=== PATIENT | male | born 1955 | race Two or more races ===

== ENCOUNTER 2017-05-28 21:36 | Observation (INO) | payer SELFPAY ==
[2017-05-28] MEDS ORDERED: ONDANSETRON 4 MG/2 ML VIAL IVP ONE (21:55)
[2017-05-28] MEDS ORDERED: NS 1,000 ML IV ONE ×3 (21:55→23:06)
--- NOTE | 2017-05-28 21:55 | EDPHY ---
H & P Stated Complaint: 3 days headache and now abd distention HPI/ROS: HPI CHIEF COMPLAINT: 3 days of headache, nausea, abdominal distention, generalized weakness HISTORY OF PRESENT ILLNESS: This patient is 61-year-old male, he has significant past medical history for hypertension, hyperlipidemia and diabetes, obesity, he presents emergency room with 3 days of global frontal throbbing pulsating headache. States this started suddenly on Sunday. It has been persistent since Sunday. Rather severe 05/03. He denies numbness or tingling anywhere. Denies focal weakness. Denies chest pain or shortness of breath. He additionally reports that his abdomen feels distended to him. He does not have any abdominal pain. Denies back pain or neck pain. Denies neck stiffness. He has never had a headache like this. Additionally tells me when he stands he gets weak globally, no dizziness. No double vision. No focal weakness. No sensation difference. Additionally the family reports that he had a fever on Sunday and Sunday 101 T -max. Of note patient is Algerian-speaking only. Son at bedside speaks fluent Faroese and Algerian. He is comfortable translating. Past Medical History: Hypertension, hyperlipidemia, diabetes Past Surgical History: No recent surgery Social History: Denies daily use of drugs alcohol tobacco products. Lives locally. Son at bedside Family History: ROS REVIEW OF SYSTEMS: A comprehensive 10 point review of systems is otherwise negative aside from elements mentioned in the history of present illness. Exam Constitutional appears well nontoxic triage nursing summary reviewed, vital signs reviewed, awake/alert. Vital signs have been reviewed, tachypnea, tachycardia. Eyes normal conjunctivae and sclera, EOMI, PERRLA. HENT normal inspection, atraumatic, moist mucus membranes, no epistaxis, neck supple/ no meningismus, no raccoon eyes. Respiratory clear to auscultation bilaterally, normal breath sounds, no respiratory distress, no wheezing. Cardiovascular rate normal, regular rhythm, no murmur, no edema, distal pulses normal. Gastrointestinal soft, non-tender, no rebound, no guarding, normal bowel sounds, no distension, no pulsatile mass. Genitourinary no CVA tenderness. Musculoskeletal no midline vertebral tenderness, full range of motion, no calf swelling, no tenderness of extremities, no meningismus, good pulses, neurovascularly intact. Skin pink, warm, & dry, no rash, skin atraumatic. Neurologic awake, alert and oriented x 3, AAOx3, moves all 4 extremities equally, motor intact, sensory intact, CN II-XII intact, normal cerebellar, normal vision, normal speech. Psychiatric normal mood/affect. Heme/Lymph/Immune no lymphadenopathy. Differential Diagnosis: Includes but is not limited to in a particular order, migraine headache, tension headache, cluster headache, intracranial bleed, intracranial tumor, infection, dehydration, electrolyte disturbance Medical Decision Making: Plan for this patient IV establishment IV fluid bolus , migraine cocktail, CT head without contrast CT angiogram head and neck given vascular risk factors, which include hypertension hyperlipidemia and diabetes, check EKG, troponin, electrolytes, abdominal labs. Urinalysis. Re-evaluate. Re-evaluation: EKG interpretation by me on record in [facility] system. Impression time of EKG 2235: Sinus tachycardia rate of 105. Otherwise I do not appreciate acute ischemic changes. Slightly Q-waves in lead 3 AVF. ED x-ray chest two view: This shows bilateral pulmonary infiltrates. Right lower lobe infiltrate. Left lower lobe infiltrate left middle lobe infiltrate. The scans are pending at this time. 2305: The patient desatted to 82% here in the emergency room he is on 3 L nasal cannula time. This patient is meeting sepsis criteria with tachycardia, tachypnea, hypoxia any pneumonia on his chest x-ray. So we treated as community -acquired pneumonia. IV Rocephin IV azithromycin has been order. Fluid bolus has been ordered 2 L normal saline. Pain not hypotensive. Blood cultures be pulled. He will be admitted to the hospital for pneumonia. 2345: Patient has pneumonia obviously on chest x-ray. He is hypoxic he was tachycardic and had fever over this weekend. Most likely cause of all this is atypical pneumonia. He has been given IV Rocephin and IV azithromycin. He is angiogram head and neck and CT scan of his head for headache her unremarkable. He is pending a CT angiogram of the chest. 2345: Spoke with Dr. Covarrubias. He agrees to admit this patient for pneumonia hypoxia sepsis. Patient is being resuscitated 3 L of normal saline. IV Rocephin IV azithromycin. Blood cultures. Elevated lactic initially. 2nd lactic pending. Hemodynamically stable. Heart rate is improved. Current vitals are heart rate 88, blood pressure 97/72. Pulse ox 97% on 3 L. 0001: Spoke with Dr. Covarrubias, he specifically requesting that we perform a CT angiogram of the chest. Patient be vigorously hydrated with IV fluids he is getting his 3rd L fluid at this time. This will hopefully flush out the contrast from is angiogram head and neck. Will use a reduce contrast load of the CT angiogram chest. Spoke with Dr. Jose Sierra who also spoke with the hospitalist about the CT angiogram. CT angiogram of the chest called to me by Dr. Sierra. This shows dense infiltrate left lung. Versus mass. Interstitial lung disease. No PE. Plan is still to be admitted for pneumonia treatment. Source: Patient - Personal History Current Tetanus/Diphtheria Vaccine: Yes Current Tetanus Diphtheria and Acellular Pertussis (TDAP): Yes - Medical/Surgical History Hx Asthma: No Hx Chronic Respiratory Disease: No Hx Diabetes: Yes Hx Cardiac Disease: Yes Hx Renal Disease: No Hx Cirrhosis: No Hx Alcoholism: No Hx HIV/AIDS: No Hx Splenectomy or Spleen Trauma: No - Social History Smoking Status: Former smoker Constitutional: Initial Vital Signs Temperature (C) 37.2 C 05/28/17 21:47 Heart Rate 122 H 05/28/17 21:47 Respiratory Rate 24 H 05/28/17 21:47 Blood Pressure 140/97 H 05/28/17 21:47 O2 Sat (%) 89 L 05/28/17 21:47 O2 Delivery Mode Nasal Cannula O2 (L/minute) 4 Allergies/Adverse Reactions: No Known Allergies Allergy (Unverified 05/28/17 21:45) Home Medications: Medication Instructions Recorded Diclofenac Sodium [Voltaren 50 MG 100 mg PO BID 05/28/17 (*)] Insulin NPH Human [humULIN N 100 30 units SC DAILY 05/28/17 UNITS/ML (*)] Isosorbide Dinitrate [Isosorbide 10 mg PO BIDNITRATE 05/28/17 Dinitrate 10 mg (*)] Losartan Potassium [Cozaar 50 mg 50 mg PO BID 05/28/17 (*)] Acetaminophen [Tylenol 325mg (*)] 650 mg PO Q4HRS PRN #0 tab 05/29/17 Insulin NPH Human [humULIN N 100 17 units SC HS 05/29/17 UNITS/ML (*)] levOFLOXACIN [Levofloxacin] 750 mg PO DAILY #5 tablet 05/29/17 Medical Decision Making - Data Points Laboratory Results: Laboratory Results 05/28/17 22:05 05/28/17 22:05 Microbiology Results: MICROBIOLOGY 05/28/17 02:10 Nasal, Sinus - Eswab Respiratory Panel (PCR) - Final No Organism Detected Medications Given: Discontinued Medications Dexamethasone (Decadron Injection) 10 mg IVP EDNOW ONE Stop: 05/28/17 22:04 Last Admin: 05/28/17 22:33 Dose: Not Given Diclofenac Sodium (Voltaren) 100 mg PO BID [facility] Stop: 11/25/17 10:59 Last Admin: 05/29/17 13:51 Dose: Not Given Diphenhydramine HCl (Benadryl Injection) 25 mg IVP EDNOW ONE Stop: 05/28/17 22:04 Last Admin: 05/28/17 22:18 Dose: 25 mg Enoxaparin Sodium (Lovenox) 40 mg SC DAILY [facility] Stop: 11/25/17 08:59 Last Admin: 05/29/17 09:42 Dose: 40 mg Hydromorphone HCl (Dilaudid) 0.5 mg IVP EDNOW ONE Stop: 05/28/17 22:04 Last Admin: 05/28/17 22:19 Dose: 0.5 mg Sodium Chloride (Ns) 1,000 mls @ 0 mls/hr IV EDNOW ONE; Wide Open PRN Reason: Protocol Stop: 05/28/17 21:56 Last Admin: 05/28/17 22:17 Dose: 1,000 mls Azithromycin 500 mg/ Dextrose 255 mls @ 255 mls/hr IV EDNOW ONE PRN Reason: Protocol Stop: 05/29/17 00:00 Last Admin: 05/28/17 23:51 Dose: 255 mls Ceftriaxone Sodium/Dextrose (Rocephin 1 Gm (Premix)) 50 mls @ 100 mls/hr IV EDNOW ONE PRN Reason: Protocol Stop: 05/28/17 23:30 Last Admin: 05/28/17 23:23 Dose: 50 mls Sodium Chloride (Ns) 1,000 mls @ 0 mls/hr IV ONCE ONE PRN Reason: Wide Open Stop: 05/28/17 23:05 Last Admin: 05/28/17 23:22 Dose: 1,000 mls Sodium Chloride (Ns) 1,000 mls @ 0 mls/hr IV ONCE ONE PRN Reason: Wide Open Stop: 05/28/17 23:07 Last Admin: 05/28/17 23:22 Dose: 1,000 mls Insulin Glargine (Lantus Syringe) 20 units SC DAILY [facility] Stop: 11/25/17 08:59 Last Admin: 05/29/17 09:44 Dose: 20 units Insulin Human Lispro (Humalog Lispro) 0 unit SC TIDMEAL BECCA PRN Reason: Protocol Stop: 11/25/17 07:59 Last Admin: 05/29/17 13:49 Dose: 4 unit Insulin Human NPH (Humulin N Syringe) 30 units SC DAILY [facility] Stop: 11/25/17 10:59 Last Admin: 05/29/17 13:55 Dose: Not Given Isosorbide Dinitrate (Isosorbide Dinitrate) 10 mg PO BIDNITRATE [facility] Stop: 11/25/17 14:59 Last Admin: 05/29/17 12:29 Dose: 10 mg Metoclopramide HCl (Reglan Injection) 10 mg IVP EDNOW ONE Stop: 05/28/17 22:04 Last Admin: 05/28/17 22:19 Dose: 10 mg Ondansetron HCl (Zofran) 4 mg IVP EDNOW ONE Stop: 05/28/17 21:56 Last Admin: 05/28/17 22:19 Dose: 4 mg Pneumococcal Polyvalent Vaccine (Pneumovax 23) 0.5 ml IM .ONCE ONE Stop: 05/29/17 11:02 Last Admin: 05/29/17 13:55 Dose: Not Given Departure - Departure Disposition: [facility] Inpatient Acute Clinical Impression: Pneumonia Qualifiers: Pneumonia type: due to unspecified organism Laterality: bilateral Lung location : lower lobe of lung Qualified Code(s): J18.9 - Pneumonia, unspecified organism Condition: Fair
[2017-05-28] MEDS ORDERED: HYDROmorphONE/DILAUDID 1 MG/ML SYR IVP ONE (22:03)
[2017-05-28] MEDS ORDERED: DEXAMETHASONE 10 MG/ML VIAL IVP ONE (22:03)
[2017-05-28] MEDS ORDERED: METOCLOPRAMIDE 10 MG/2 ML VIAL IVP ONE (22:03)
[2017-05-28 22:14] LABS: % IMMATURE GRANULYOCYTES 0.3 % (0.0-1.1); ABSOLUTE IMMATURE GRANULOCYTES 0.03 10^3/uL (0.00-0.10); ADD DIFF? NO; ADD MORPH? NO; ADD SCAN? NO; ATYPICAL LYMPHOCYTE FLAG 20 (0-99); FRAGMENT RBC FLAG 0 (0-99); HEMATOCRIT 48.3 % (40.0-51.0); HEMOGLOBIN 16.2 g/dL (13.7-17.5); LEFT SHIFT FLG 0 (0-99); LIPEMIA HEMOLYSIS FLAG 80 (0-99); MEAN CELL HEMOGLOBIN 30.2 pg (27.9-34.1); MEAN CELL HEMOGLOBIN CONCENTR. 33.5 g/dL (32.4-36.7); MEAN CELL VOLUME 89.9 fL (81.5-99.8); MEAN PLATELET VOLUME 10.5 fL (8.7-11.7); PLATELET CLUMPS FLAG 10 (0-99); PLATELET COUNT 205 10^3/uL (150-400); RED BLOOD CELL COUNT 5.37 10^6/uL (4.40-6.38); RED CELL DISTRIBUTION WIDTH 12.4 % (11.5-15.2)
[2017-05-28 22:28] LABS: ALANINE AMINOTRANSFERASE 38 IU/L (21-72); ALBUMIN 3.9 g/dL (3.5-5.0); ALKALINE PHOSPHATASE 85 IU/L (38-126); ANION GAP 14 mEq/L (8-16); ASPARTATE AMINOTRANSFERASE 26 IU/L (17-59); BILIRUBIN,TOTAL 0.8 mg/dL (0.1-1.4); BILIRUBIN-CONJUGATED 0.4 mg/dL (0.0-0.5); BILIRUBIN-UNCONJUGATED 0.4 mg/dL (0.0-1.1); CALCIUM 9.7 mg/dL (8.5-10.4); CARBON DIOXIDE 24 mEq/l (22-31); CHLORIDE 94 mEq/L (97-110); CREATININE 0.8 mg/dL (0.7-1.3); GLOMERULAR FILTRATION RATE > 60; GLUCOSE 261 mg/dL (70-100); INR 1.03 (0.83-1.16); PROTIME(PATIENT) 13.4 SEC (12.0-15.0); SODIUM 132 mEq/L (134-144); TOTAL PROTEIN 7.2 g/dL (6.3-8.2)
[2017-05-28 22:29] LABS: APTT 33.7 SEC (23.0-38.0)
[2017-05-28] MEDS ORDERED: IOPAMIDOL (ISOVUE 370) 100 ML BTL IV ONE ×2 (22:32→23:54)
--- NOTE | 2017-05-28 22:39 | CPEKG ---
Heart Rate: 105 RR Interval: 571 P-R Interval: 160 QRSD Interval: 94 QT Interval: 348 QTC Interval: 461 P [place]: 44 QRS [place]: 67 T Wave [place]: 19 EKG Severity - BORDERLINE ECG - EKG Impression: SINUS TACHYCARDIA EKG Impression: BORDERLINE INFERIOR Q WAVES Electronically Signed By: Kelvin Ashton 29-May-2017 07:45:12
[2017-05-28 22:40] LABS: TROPONIN I < 0.012 ng/mL (0.000-0.034)
[2017-05-28] MEDS ORDERED: AZITHROMYCIN IV 500 MG in D5W 250 ML IV ONE (23:01)
[2017-05-28 23:45] LABS: BASE EXCESS -0.9 mEq/L (-2.5-2.5); BICARBONATE 23 mEq/L (22-26); MEASURED OXYGEN SATURATION 98 % (92-95); PCO2 38 mmHg (34-38); PO2 96 mmHg (65-75); TCO2 24 mEq/L (23-27)
[2017-05-29] MEDS ORDERED: ONDANSETRON 4 MG/2 ML VIAL IVP PRN (01:06)
[2017-05-29] MEDS ORDERED: ONDANSETRON DISINTEGRATING 4 MG TAB PO PRN (01:06)
[2017-05-29] MEDS ORDERED: ACETAMINOPHEN 325 MG TAB PO PRN (01:06)
--- NOTE | 2017-05-29 01:13 | PDGENHP ---
History and Physical - Chief Complaint Headache - History of Present Illness 61 yo M with DM and HTN presents to ED with headache, sore throat, nausea, and abdominal pain. He is visiting his family from [place] and has not felt well for the past 3 days. He has been having a diffuse headache involving both temples that has lasted 3 days. He denies photophobia or phonophobia. Additionally, He has been having nausea, sore throat, and abdominal pain. He denies cough, SOB, dysuria, and diarrhea. Upon arrival in ED he was given fluids, Benadryl, Dilaudid, and Reglan with resolution of his symptoms. However, he was noted to be hypoxic while here. CXR revealed L sided consolidation. History Information - Allergies/Home Medication List Allergies/Adverse Reactions: No Known Allergies Allergy (Unverified 05/28/17 21:45) Home Medications: Diclofenac Sodium 05/28/17 [Last Taken Unknown] ISOSORBIDE DINITRATE 05/28/17 [Last Taken Unknown] Insulin NPH Human 05/28/17 [Last Taken Unknown] Losartan Potassium 05/28/17 [Last Taken Unknown] Metformin HCl [Fortamet] 05/28/17 [Last Taken Unknown] I have personally reviewed and updated: family history, medical history - Past Medical History diabetes type 2, hypertension - Surgical History Reports: no pertinent surgical hx - Family History Positive for: diabetes type II - Social History Smoking Status: Former smoker Alcohol Use: None Drug Use: None Review of Systems ROS: 10pt was reviewed & negative except for what was stated in HPI & below Physical Exam Temp Pulse Resp BP Pulse Ox 37.3 C 98 20 102/73 97 05/28/17 23:24 05/28/17 23:24 05/28/17 23:24 05/28/17 23:59 05/28/17 23:24 Constitutional: no apparent distress, obese Eyes: PERRL, EOMI Ears, Nose, Mouth, Throat: moist mucous membranes, no oral mucosal ulcers Cardiovascular: regular rate and rhythym, no murmur, rub, or gallop Respiratory: no respiratory distress, no rales or rhonchi, reduced air movement Gastrointestinal: normoactive bowel sounds, soft, non-tender abdomen, distension Skin: warm, no rashes or abrasions Musculoskeletal: full muscle strength, no muscle tenderness Neurologic: AAOx3, CN II-XII Intact Psychiatric: interacting appropriately, not anxious Lab Data & Imaging Review 05/28/17 22:05 05/28/17 22:05 WBC 8.79 10^3/uL (3.80-9.50) 05/28/17 22:05 RBC 5.37 10^6/uL (4.40-6.38) 05/28/17 22:05 Hgb 16.2 g/dL (13.7-17.5) 05/28/17 22:05 Hct 48.3 % (40.0-51.0) 05/28/17 22:05 MCV 89.9 fL (81.5-99.8) 05/28/17 22:05 MCH 30.2 pg (27.9-34.1) 05/28/17 22:05 MCHC 33.5 g/dL (32.4-36.7) 05/28/17 22:05 RDW 12.4 % (11.5-15.2) 05/28/17 22:05 Plt Count 205 10^3/uL (150-400) 05/28/17 22:05 MPV 10.5 fL (8.7-11.7) 05/28/17 22:05 Neut % (Auto) 62.8 % (39.3-74.2) 05/28/17 22:05 Lymph % (Auto) 26.2 % (15.0-45.0) 05/28/17 22:05 [place] % (Auto) 8.6 % (4.5-13.0) 05/28/17 22:05 Eos % (Auto) 1.4 % (0.6-7.6) 05/28/17 22:05 Baso % (Auto) 0.7 % (0.3-1.7) 05/28/17 22:05 Nucleat RBC Rel Count 0.0 % (0.0-0.2) 05/28/17 22:05 Absolute Neuts (auto) 5.52 10^3/uL (1.70-6.50) 05/28/17 22:05 Absolute Lymphs (auto) 2.30 10^3/uL (1.00-3.00) 05/28/17 22:05 Absolute Monos (auto) 0.76 10^3/uL (0.30-0.80) 05/28/17 22:05 Absolute Eos (auto) 0.12 10^3/uL (0.03-0.40) 05/28/17 22:05 Absolute Basos (auto) 0.06 10^3/uL (0.02-0.10) 05/28/17 22:05 Absolute Nucleated RBC 0.00 10^3/uL (0-0.01) 05/28/17 22:05 Immature Gran % 0.3 % (0.0-1.1) 05/28/17 22:05 Immature Gran # 0.03 10^3/uL (0.00-0.10) 05/28/17 22:05 PT 13.4 SEC (12.0-15.0) 05/28/17 22:05 INR 1.03 (0.83-1.16) 05/28/17 22:05 APTT 33.7 SEC (23.0-38.0) 05/28/17 22:05 Puncture Site RIGHT RADIAL 05/28/17 23:38 Patient Temperature 37.0 DEGREES 05/28/17 23:38 pCO2 38 mmHg (34-38) 05/28/17 23:38 pO2 96 mmHg (65-75) H 05/28/17 23:38 Total CO2 24 mEq/L (23-27) 05/28/17 23:38 ABG pH 7.40 (7.35-7.45) 05/28/17 23:38 ABG HCO3 23 mEq/L (22-26) 05/28/17 23:38 ABG O2 Saturation 98 % (92-95) H 05/28/17 23:38 ABG Base Excess -0.9 mEq/L (-2.5-2.5) 05/28/17 23:38 VBG Lactic Acid 2.3 mmol/L (0.7-2.1) H D 05/29/17 00:41 Total O2 Concentration 4.0 LITERS 05/28/17 23:38 Sodium 132 mEq/L (134-144) L 05/28/17 22:05 Potassium 4.0 mEq/L (3.5-5.2) 05/28/17 22:05 Chloride 94 mEq/L (97-110) L 05/28/17 22:05 Carbon Dioxide 24 mEq/l (22-31) 05/28/17 22:05 Anion Gap 14 mEq/L (8-16) 05/28/17 22:05 BUN 13 mg/dL (7-23) 05/28/17 22:05 Creatinine 0.8 mg/dL (0.7-1.3) 05/28/17 22:05 Estimated GFR > 60 05/28/17 22:05 Glucose 261 mg/dL (70-100) H 05/28/17 22:05 Calcium 9.7 mg/dL (8.5-10.4) 05/28/17 22:05 Total Bilirubin 0.8 mg/dL (0.1-1.4) 05/28/17 22:05 Conjugated Bilirubin 0.4 mg/dL (0.0-0.5) 05/28/17 22:05 Unconjugated Bilirubin 0.4 mg/dL (0.0-1.1) 05/28/17 22:05 AST 26 IU/L (17-59) 05/28/17 22:05 ALT 38 IU/L (21-72) 05/28/17 22:05 Alkaline Phosphatase 85 IU/L (38-126) 05/28/17 22:05 Troponin I < 0.012 ng/mL (0.000-0.034) 05/28/17 22:05 Total Protein 7.2 g/dL (6.3-8.2) 05/28/17 22:05 Albumin 3.9 g/dL (3.5-5.0) 05/28/17 22:05 Lipase 108 IU/L (23-300) 05/28/17 22:05 Imaging Review: CXR and CT chest with L-sided consolidation and pneumonitis. CTA head/neck/ chest with no significant vascular abnormalities. Visualized and Interpreted Chest x-ray results: Yes Chest X-Ray results: infiltrate Visualized and Interpreted EKG results: Yes EKG additional interpertation: Sinus tach Assessment & Plan Assessment: 61 yo M presents with multiple complaints diagnosed with pneumonia per imaging after hypoxia in ED. Plan: 1. Pneumonia - CXR and CT chest with L-sided consolidation. Atypical presentation with no cough or sputum production. He was noted to be hypoxic in the ED, only requiring 2L O2 via NC. Constellation of symptoms (sore throat, headache, nausea) suggestive of viral infection but likely needs antibiotics noting consolidation. - CTX, azithro for CAP coverage - O2 PRN 2. AHRF - Suspect related to above in combination with EDWARD/OHS noting obesity. CTPE negative for PE. 3. Headache - CTA head and neck with no abnormalities. No neurologic deficits on exam and resolved with migraine cocktail. Continue to monitor. 4. Diabetes - Takes insulin NPH 30/17 AM/PM at home. - Insulin glargine 20 + SSI while inpatient 5. HTN - On Losartan and ISDN as outpatient Diet - Regular Code - Full Ppx - LMWH Dispo - Admit to observation, expect <2 MN
[2017-05-29] MEDS ORDERED: D10W 250 ML PRN HYPOGLYCEMIA IV (01:30)
[2017-05-29 01:32] LABS: COLOR YELLOW; LEUKOCYTE ESTERASE,URINE NEGATIVE (NEGATIVE); NITRITE,URINE NEGATIVE (NEGATIVE)
[2017-05-29 04:39] LABS: % IMMATURE GRANULYOCYTES 0.5 % (0.0-1.1); ABSOLUTE IMMATURE GRANULOCYTES 0.03 10^3/uL (0.00-0.10); ADD DIFF? NO; ADD MORPH? NO; ADD SCAN? NO; ATYPICAL LYMPHOCYTE FLAG 50 (0-99); FRAGMENT RBC FLAG 0 (0-99); HEMATOCRIT 42.7 % (40.0-51.0); LEFT SHIFT FLG 0 (0-99); LIPEMIA HEMOLYSIS FLAG 80 (0-99); MEAN CELL HEMOGLOBIN 30.1 pg (27.9-34.1); MEAN CELL HEMOGLOBIN CONCENTR. 32.8 g/dL (32.4-36.7); MEAN CELL VOLUME 91.8 fL (81.5-99.8); MEAN PLATELET VOLUME 10.9 fL (8.7-11.7); PLATELET CLUMPS FLAG 10 (0-99); PLATELET COUNT 165 10^3/uL (150-400); RED BLOOD CELL COUNT 4.65 10^6/uL (4.40-6.38); RED CELL DISTRIBUTION WIDTH 12.5 % (11.5-15.2)
[2017-05-29 04:54] LABS: ANION GAP 11 mEq/L (8-16); CALCIUM 8.1 mg/dL (8.5-10.4); CARBON DIOXIDE 23 mEq/l (22-31); CHLORIDE 102 mEq/L (97-110); CREATININE 0.9 mg/dL (0.7-1.3); GLOMERULAR FILTRATION RATE > 60; GLUCOSE 210 mg/dL (70-100); SODIUM 136 mEq/L (134-144)
[2017-05-29] MEDS ORDERED: INSULIN GLARGINE 100 UNITS/ML SYRINGE SC SCH (09:00)
[2017-05-29] MEDS ORDERED: ENOXAPARIN 40 MG/0.4 ML SYR SC SCH (09:00)
[2017-05-29] MEDS: INSULIN LISPRO 100 UNIT/ML SC SCH ×2 (09:43→13:49)
--- NOTE | 2017-05-29 10:44 | PDHOMEO2F ---
Home Oxygen Face to Face Home Orders: I certify that a physician or a nurse practitioner or physician's client services assistant has had a [id number] encounter with this patient on the date of this order due to the diagnosis listed, which relates to the primary reason the patient requires home oxygen. Alternative treatments have been tried, or considered, and deemed ineffective. It is anticipated that supplemental oxygen will result in improvement with treatment. Home oxygen qualifying diagnosis: Community acquired pneumonia Home oxygen secondary diagnosis: Suspected EDWARD SpO2 on room air (%): 89 Frequency of home oxygen needed: continuous Home oxygen liters per minute: 4 Home oxygen delivery device: nasal cannula Concentrator: Yes E-tanks for mobility and back up: Yes If ordering portable O2, is the patient mobile in the home?: Yes I certify that, based on these findings, the home oxygen is medically necessary for this patient for the following length of time. Length of time home oxygen needed: 1 month
--- NOTE | 2017-05-29 10:59 | PDDCSUM ---
Discharge Summary Discharge Summary: DISCHARGE SUMMARY FOLLOW-UP ITEMS: Follow-up supplemental oxygen level upon returning home in [place], follow-up outpatient sleep study DATE OF ADMISSION: 05/28/2017 DATE OF DISCHARGE: 05/29/17 DISCHARGE DIAGNOSES: 1. Community-acquired pneumonia 2. Acute hyponatremia 3. Lactic acidosis 4. Diabetes mellitus type 2 CONSULTATIONS: None PROCEDURES / IMAGING: Chest CT demonstrating no pulmonary embolism, left lower lobe/lingular airspace disease, CT angiogram of head and neck demonstrating no vascular occlusion CHIEF COMPLAINT: Acute headache SUBJECTIVE: Patient is feeling well at time of discharge, headache has resolved PHYSICAL EXAM ON DISCHARGE: Systolic blood pressure 110, heart rate 70, satting well on 4 L nasal cannula, right lung base is clear, left lung base has faint inspiratory crackles but no expiratory wheezes, heart rhythm is regular comma oropharynx is clear, lower extremities demonstrate minimal edema LABS ON DISCHARGE: Serum sodium 136, creatinine 0.9, venous lactate 2.3, urinalysis unremarkable, troponin negative, liver panel unremarkable, respiratory viral panel negative, white blood cell count [id number] HOSPITAL COURSE BY PROBLEM: 1. Community-acquired pneumonia. The patient reports that he has recently felt ill and he was most likely recovering from a community-acquired pneumonia. This is based on chest CT imaging as well as symptoms reported. This most likely resulted in hypoxia with resolving airspace disease in the left lower lobe and the lingula. This hypoxia most likely caused his headache, which was his presenting symptom. He has stabilized on supplemental oxygen, and is requiring 4 L nasal cannula at discharge. I have discussed supplemental oxygen with the patient and his , they are electing for home oxygen while he remains here in [place], then to be reassessed in [place] with a leave for home. We will also provide the patient with a total of 5 days of oral antibiotic therapy. 2. Lactic acidosis. Unclear whether this was secondary to infection versus metformin affect, his creatinine level is normal, but he has also been normotensive. Recommended that the metformin temporarily be held until the patient can return home to [place] and have his labs redrawn and medications reconsidered. 3. Diabetes mellitus type 2. Recommend continuing on long-acting insulin with NPH, holding metformin until he is reassessed in [place]. 4. Acute hyponatremia. Most likely secondary to initial hypoperfusion, received normal saline, resolved. DISCHARGE MEDICATIONS: Please see official discharge medication reconciliation sheet in chart levofloxacin 750 mg daily x5 days, continue all other home medications except metformin. DISCHARGE INSTRUCTIONS: Please have outpatient labs and oxygen reassessment upon returning to [place].
[2017-05-29] MEDS ORDERED: DICLOFENAC SODIUM 50 MG TAB PO SCH (11:00)
[2017-05-29] MEDS ORDERED: INSULIN NPH HUMAN 100 UNITS/ML SYRINGE SC SCH ×2 (11:00→21:00)
[2017-05-29] MEDS ORDERED: PNEUMOCOCCAL 0.5ML VACCINE VIAL IM ONE (11:01)
[2017-05-29 11:14] VITALS: PULSE 62; RESP 18; TEMP 97.2; O2SAT 98
[2017-05-29 12:32] VITALS: BP 107/70
[2017-05-29] MEDS ORDERED: ISOSORBIDE DINITRATE 10 MG TAB PO SCH (15:00)
[2017-05-29] MEDS ORDERED: LOSARTAN POTASSIUM 50 MG TAB PO SCH (20:00)
[2017-05-29] MEDS ORDERED: AZITHROMYCIN 250 MG TAB PO SCH (21:00)
== END 2017-05-29 16:11 | disposition home or self-care (01) ==
LOC: INTOOBSV 23:43 → F2W 05-29 01:33
PROVIDERS: ADMIT Student in an Organized Health Care Education/Training Program; ATTEND Student in an Organized Health Care Education/Training Program
DX: J18.9 Pneumonia, unspecified organism (principal); E87.1 Hypo-osmolality and hyponatremia; E87.2 Acidosis; E78.5 Hyperlipidemia, unspecified; I10 Essential (primary) hypertension; E11.9 Type 2 diabetes mellitus without complications; Z87.891 Personal history of nicotine dependence
CPT/HCPCS: 96365; G0378; J0456; J0696; J1170; J1200; J1650; J1815; J2405; J2765; Q9967